=== PATIENT | female | born 1985 | race Caucasian/White ===

== ENCOUNTER 2019-12-18 21:41 | Emergency (ER) | payer MEDICARE, OTHER ==
[2019-12-18 21:50] VITALS: RESP 18
[2019-12-18] MEDS ORDERED: SODIUM CHLORIDE 0.9% 2,000 ML IV STA (21:51)
--- NOTE | 2019-12-18 21:53 | ED ---
Nausea/Vomiting/Diarrhea HPI - General Chief complaint: Nausea/Vomiting/Diarrhea Stated complaint: Post Radiation Vomiting Time Seen by Provider: 12/18/19 21:51 Source: family Mode of arrival: wheelchair Limitations: no limitations - History of Present Illness Initial comments: Sally is a 34yo female with recently diagnosed rectal cancer identified on a colonoscopy in October. Patient began radiation therapy on Thursday. Mom reports that this morning the patient woke up she seemed to be nauseated she was heaving she didn't keep down her breakfast she drank small sips of fluids throughout the day but refused other oral intake. This evening she continues to have heaving without vomiting because she is not a drink anything. Mom's concern for dehy dration. - Related Data Allergies Allergy/AdvReac Type Severity Reaction Status Date / Time Penicillins Allergy Unknown Verified 12/18/19 21:50 Review of Systems ROS Statement: Those systems with pertinent positive or pertinent negative responses have been documented in the HPI. ROS Other: All systems not noted in ROS Statement are negative. Past Medical History Past Medical History: Cancer, GERD/Reflux, Seizure Disorder Additional Past Medical History / Comment(s): rectal cancer, right chest port History of Any Multi-Drug Resistant Organisms: None Reported Past Surgical History: No Surgical Hx Reported Past Psychological History: Anxiety Smoking Status: Never smoker Past Alcohol Use History: None Reported Past Drug Use History: None Reported General Exam - General Exam Comments Initial Comments: Physical Exam GENERAL: Patient is well-developed and well-nourished. Patient appears uncomfortable, heaving HENT: Normocephalic, Atraumatic. EYES: PERRL, EOMI PULMONARY: Unlabored respirations. No audible rales rhonchi or wheezing was noted. CARDIOVASCULAR: Tachycardic, regular ABDOMEN: Soft and nontender with normal bowel sounds. SKIN: Skin is clear with no lesions or rashes and otherwise unremarkable. : Deferred NEUROLOGIC: Oriented to self, not answering questions MUSCULOSKELETAL: Normal extremities with adequate strength and full range of motion. No lower extremity swelling or edema. No calf tenderness. PSYCHIATRIC: Unable to assess Limitations: no limitations Course Vital Signs 12/18/19 21:43 Temperature 97.5 F L Pulse Rate 108 H Respiratory 18 Rate Blood Pressure 132/79 O2 Sat by Pulse 97 Oximetry Medical Decision Making - Medical Decision Making Patient was seen and evaluated history is obtained from the mother due to patient's cognitive delay Patient began radiation last week today she developed nausea and vomiting and decreased oral intake mother was concerned she may be becoming dehydrated Labs and x-ray imaging were obtained, no significant abnormalities were noted Patient did receive Zofran and IV fluids on the hospital. She had no further episodes of heaving or vomiting. She appeared to be feeling much better. At this time mom is comfortable taking her home she will be provided with Zofran ODT upon discharge. Patient is to see her oncologist tomorrow for scheduled radiation. - Lab Data Result diagrams: 12/18/19 21:56 12/18/19 21:56 Lab Results 12/18/19 12/18/19 12/18/19 Range/Units 21:56 21:56 21:56 WBC 7.1 (3.8-10.6) k/uL RBC 4.72 (3.80-5.40) m/uL Hgb 11.0 L (11.4-16.0) gm/dL Hct 36.3 (34.0-46.0) % MCV 76.9 L (80.0-100.0) fL MCH 23.3 L (25.0-35.0) pg MCHC 30.4 L (31.0-37.0) g/dL RDW 19.6 H (11.5-15.5) % Plt Count 394 (150-450) k/uL Neutrophils % 79 % Lymphocytes % 15 % Monocytes % 4 % Eosinophils % 1 % Basophils % 0 % Neutrophils # 5.6 (1.3-7.7) k/uL Lymphocytes # 1.1 (1.0-4.8) k/uL Monocytes # 0.3 (0-1.0) k/uL Eosinophils # 0.0 (0-0.7) k/uL Basophils # 0.0 (0-0.2) k/uL Hypochromasia Marked Anisocytosis Slight Microcytosis Moderate Sodium 140 (137-145) mmol/L Potassium 4.1 (3.5-5.1) mmol/L Chloride 109 H (98-107) mmol/L Carbon Dioxide 26 (22-30) mmol/L Anion Gap 5 mmol/L BUN 11 (7-17) mg/dL Creatinine 0.55 (0.52-1.04) mg/dL Est GFR (CKD-EPI)AfAm >90 (>60 ml/min/1.73 sqM) Est GFR (CKD-EPI)NonAf >90 (>60 ml/min/1.73 sqM) Glucose 99 (74-99) mg/dL Plasma Lactic Acid Sky 1.1 (0.7-2.0) mmol/L Calcium 9.5 (8.4-10.2) mg/dL Total Bilirubin 0.7 (0.2-1.3) mg/dL AST 22 (14-36) U/L ALT 10 (4-34) U/L Alkaline Phosphatase 73 (38-126) U/L Total Protein 6.7 (6.3-8.2) g/dL Albumin 4.0 (3.5-5.0) g/dL Lipase 212 (23-300) U/L HCG, Quant <2.4 mIU/mL Urine Color Urine Appearance (Clear) Urine pH (5.0-8.0) Ur Specific [place] (1.001-1.035) Urine Protein (Negative) Urine Glucose (UA) (Negative) Urine Ketones (Negative) Urine Blood (Negative) Urine Nitrite (Negative) Urine Bilirubin (Negative) Urine Urobilinogen (<2.0) mg/dL Ur Leukocyte Esterase (Negative) Urine RBC (0-5) /hpf Urine WBC (0-5) /hpf Ur Squamous Epith Cells (0-4) /hpf Urine Mucus (None) /hpf 12/18/19 Range/Units 21:56 WBC (3.8-10.6) k/uL RBC (3.80-5.40) m/uL Hgb (11.4-16.0) gm/dL Hct (34.0-46.0) % MCV (80.0-100.0) fL MCH (25.0-35.0) pg MCHC (31.0-37.0) g/dL RDW (11.5-15.5) % Plt Count (150-450) k/uL Neutrophils % % Lymphocytes % % Monocytes % % Eosinophils % % Basophils % % Neutrophils # (1.3-7.7) k/uL Lymphocytes # (1.0-4.8) k/uL Monocytes # (0-1.0) k/uL Eosinophils # (0-0.7) k/uL Basophils # (0-0.2) k/uL Hypochromasia Anisocytosis Microcytosis Sodium (137-145) mmol/L Potassium (3.5-5.1) mmol/L Chloride (98-107) mmol/L Carbon Dioxide (22-30) mmol/L Anion Gap mmol/L BUN (7-17) mg/dL Creatinine (0.52-1.04) mg/dL Est GFR (CKD-EPI)AfAm (>60 ml/min/1.73 sqM) Est GFR (CKD-EPI)NonAf (>60 ml/min/1.73 sqM) Glucose (74-99) mg/dL Plasma Lactic Acid Sky (0.7-2.0) mmol/L Calcium (8.4-10.2) mg/dL Total Bilirubin (0.2-1.3) mg/dL AST (14-36) U/L ALT (4-34) U/L Alkaline Phosphatase (38-126) U/L Total Protein (6.3-8.2) g/dL Albumin (3.5-5.0) g/dL Lipase (23-300) U/L HCG, Quant mIU/mL Urine Color Yellow Urine Appearance Clear (Clear) Urine pH 6.5 (5.0-8.0) Ur Specific [place] 1.015 (1.001-1.035) Urine Protein Trace H (Negative) Urine Glucose (UA) Negative (Negative) Urine Ketones 2+ H (Negative) Urine Blood Large H (Negative) Urine Nitrite Negative (Negative) Urine Bilirubin Negative (Negative) Urine Urobilinogen <2.0 (<2.0) mg/dL Ur Leukocyte Esterase Small H (Negative) Urine RBC >182 H (0-5) /hpf Urine WBC 2 (0-5) /hpf Ur Squamous Epith Cells 1 (0-4) /hpf Urine Mucus Few H (None) /hpf Disposition Clinical Impression: Nausea and vomiting Disposition: HOME SELF-CARE Condition: Stable Additional Instructions: Continue to encourage fluids Follow up with Oncology tomorrow Return to the ER for any worsening or development of new or concerning symptoms Is patient prescribed a controlled substance at d/c from ED?: No Referrals: Nonstaff,Physician [Primary Care Provider] - 1-2 days
[2019-12-18 22:25] LABS: Anisocytosis Slight; Basophils % (A) 0 %; Eosinophils % (A) 1 %; HCT 36.3 % (34.0-46.0); Hypochromasia Marked; Lymphocytes # (A) 1.1 k/uL (1.0-4.8); Lymphocytes % (A) 15 %; MCH 23.3 pg (25.0-35.0); MCHC 30.4 g/dL (31.0-37.0); MCV 76.9 fL (80.0-100.0); Mean Platelet Volume 7.6; Microcytosis Moderate; Monocytes # (A) 0.3 k/uL (0-1.0); Monocytes % (A) 4 %; Neutrophils # (A) 5.6 k/uL (1.3-7.7); Neutrophils % (A) 79 %; Platelet Count 394 k/uL (150-450); RBC 4.72 m/uL (3.80-5.40); RDW 19.6 % (11.5-15.5); WBC 7.1 k/uL (3.8-10.6)
[2019-12-18] MEDS ORDERED: PANTOPRAZOLE 40 MG/10 ML VIAL IVP STA (22:26)
[2019-12-18] MEDS ORDERED: ONDANSETRON 4 MG/2 ML VIAL IVP STA (22:26)
[2019-12-18 22:35] LABS: ALT 10 U/L (4-34); AST 22 U/L (14-36); African American GFR (CKD) >90 (>60 ml/min/1.73 sqM); Alkaline Phosphatase 73 U/L (38-126); Anion Gap 5 mmol/L; Blood Urea Nitrogen 11 mg/dL (7-17); Calcium 9.5 mg/dL (8.4-10.2); Carbon Dioxide 26 mmol/L (22-30); Chloride 109 mmol/L (98-107); Glucose 99 mg/dL (74-99); Non-African American GFR(CKD) >90 (>60 ml/min/1.73 sqM); Potassium 4.1 mmol/L (3.5-5.1); Sodium 140 mmol/L (137-145); Total Bilirubin 0.7 mg/dL (0.2-1.3); Total Protein 6.7 g/dL (6.3-8.2)
[2019-12-18 22:52] LABS: HCG,Quantitative Serum <2.4 mIU/mL
--- NOTE | 2019-12-18 23:01 | XR ---
EXAMINATION TYPE: XR KUB DATE OF EXAM: 12/18/2019 COMPARISON: None HISTORY: Abdominal pain TECHNIQUE: FINDINGS: 2 views were obtained supine that show no sign of intestinal obstruction or pneumoperitoneu m. Fecal pattern is normal. There is no sign of a mass. Lung bases are clear. IMPRESSION: Nonacute abdomen.
[2019-12-18 23:41] LABS: Appearance,Urine Clear (Clear); Bilirubin,Urine Negative (Negative); Blood,Urine Large (Negative); Color,Urine Yellow; Glucose,Urine (UA) Negative (Negative); Ketones,Urine 2+ (Negative); Leukocyte Esterase,Urine Small (Negative); Mucus,Urine Few /hpf; Nitrite,Urine Negative (Negative); PH, Urine 6.5 (5.0-8.0); Protein,Urine Trace (Negative); RBC,Urine >182 /hpf (0-5); Specific Gravity,Urine 1.015 (1.001-1.035); Squamous Epithelial Cell,Urine 1 /hpf (0-4); Urobilinogen,Urine <2.0 mg/dL (<2.0); WBC,Urine 2 /hpf (0-5)
[2019-12-19] MEDS ORDERED: ONDANSETRON 4 MG ODT STARTER PACK 2 TAB BTL PO STA (00:12)
[2019-12-19 00:43] VITALS: BP 136/70; PULSE 85; TEMP 98.4
== END 2019-12-19 00:43 | disposition home or self-care (01) ==
LOC: EC 21:41
DX: R11.2 Nausea with vomiting, unspecified (principal); C20 Malignant neoplasm of rectum; Z88.0 Allergy status to penicillin; Z92.21 Personal history of antineoplastic chemotherapy; Z87.19 Personal history of other diseases of the digestive system
CPT/HCPCS: 36415; 80053; 83605; 83690; 85025; 81001; 84702; 87040; 74018; 99284; 96374; 96375; 96361 ×2; J2405; S0119; C9113

== ENCOUNTER → 2020-06-20 | Outpatient (CLI) | payer MEDICARE, OTHER ==
--- NOTE | 2020-06-20 14:50 | CT ---
EXAMINATION TYPE: CT ChestAbdPelvis w con DATE OF EXAM: 06/20/2020 COMPARISON: None HISTORY: F/U for rectal CA CT DLP: 1176.6 mGycm CONTRAST: CT scan of the chest, abdomen and pelvis is performed without Oral Contrast and with IV Contrast, pat ient injected with 100 mL of Isovue 300. CT Chest: LUNGS: The lungs are clear and free of infiltrate or atelectasis. No pulmonary nodule or mass is det ected. No pleural effusion or CT evidence of interstitial lung disease. MEDIASTINUM: Thoracic aorta is of normal caliber. The heart is not enlarged. No evidence for media stinal mass or adenopathy. HILAR STRUCTURES: No evidence for mass. No hilar adenopathy is appreciated. OTHER: No significant abnormality. CONTRAST CT ABDOMEN AND PELVIS FINDINGS: LIVER/GB: Cholesterol gallstones noted. Nonspecific 1 cm lesion of decreased attenuation posterior se gment right hepatic lobe image 41. No additional hepatic lesions noted. Ultrasound correlation advise d. Biliary tree is of normal caliber. PANCREAS: No inflammation. No distinct mass. SPLEEN: No splenic enlargement. No lesion seen. ADRENALS: No nodule. No thickening. KIDNEYS/BLADDER: No hydronephrosis. No nephrolithiasis. No disctinct renal mass. BOWEL: Normal appendix. There is rectal wall thickening noted to the right of midline. Mild perirecta l stranding noted is nonspecific. No perirectal masses seen. GENITAL ORGANS: 3.2 cm cystic lesion left ovary is nonspecific. Right ovary and uterus are unremarkab le. LYMPH NODES: No greater than 1cm abdominal or pelvic lymph nodes are appreciated. AORTA: No significant abnormality. OSSEOUS STRUCTURES: No significant abnormality is seen. OTHER: No significant additional abnormality is seen. IMPRESSION: 1. There is rectal wall thickening noted to the right of midline. Mild perirectal stranding noted is nonspecific. No perirectal masses seen. 2. Hypoattenuating lesion within the right hepatic lobe near the dome. Metastatic lesion is difficult to CORRELATION IS ADVISED. 3. CYSTIC LESION LEFT OVARY IS NONSPECIFIC. ULTRASOUND CORRELATION ADVISED.
== END | disposition home or self-care (01) ==
LOC: EEVIPCON 13:40 → RADPROMAIN 13:40
PROVIDERS: ATTEND Internal Medicine Hematology & Oncology
DX: N83.202 Unspecified ovarian cyst, left side (principal)
CPT/HCPCS: 71260; 74177; J1642; Q9967

== ENCOUNTER → 2021-02-28 | Outpatient (CLI) | payer MEDICARE, OTHER ==
--- NOTE | 2021-03-01 21:33 | CT ---
EXAMINATION TYPE: CT ChestAbdPelvis w con DATE OF EXAM: 02/28/2021 COMPARISON: CT 06/20/2020 HISTORY: Rectal ca. Observe for mets. Pt not able to follow commands to stay still during test CT DLP: 1446 mGycm Automated exposure control for dose reduction was used. CONTRAST: CT scan of the chest, abdomen and pelvis is performed with Oral Contrast and with IV Contrast, patien t injected with 100 mL of Isovue 300. FINDINGS: LUNGS: The lungs are grossly clear, there is no concerning parenchymal mass or nodule identified. T here is no pleural effusion or pneumothorax seen. The tracheobronchial tree is patent. MEDIASTINUM: There are no greater than 1 cm hilar or mediastinal lymph nodes. No pericardial effusi on is seen. AORTA: No significant abnormality is seen. OTHER: No additional significant abnormality is seen. LIVER/GB: No significant interval change is appreciated, gallstones are present. Low dense focus with in the left lobe of the liver shows a similar appearance measuring 18 mm and becoming less conspicuou s on delayed imaging, possible hemangioma, additional previous identified focus in the right lobe chaparro ws a similar appearance, axial image #42, noted on prior MRI abdomen to represent hemangioma PANCREAS: No significant abnormality is seen. SPLEEN: No significant abnormality is seen. ADRENALS: No significant abnormality is seen. KIDNEYS: No significant abnormality is seen. REPRODUCTIVE ORGANS: Cystic left adnexal focus seen on prior exam is no longer seen.. BOWEL: There is an ostomy in the midline that is been placed in the interval. Postop changes are not ed, rectum is no longer seen. FREE AIR: No Free Air visible. ASCITES: None seen. RETROPERITONEAL ADENOPATHY: No retroperitoneal adenopathy is seen. LYMPH NODES: No greater than 1 cm abdominal or pelvic lymph nodes are appreciated. URINARY BLADDER: No significant abnormality is seen. PELVIC ADENOPATHY: None visualized. OSSEOUS STRUCTURES: No significant abnormality is seen. IMPRESSION: Postop changes. Lesions in the liver are stable.
== END | disposition home or self-care (01) ==
LOC: RADPROMAIN 13:06
PROVIDERS: ATTEND Internal Medicine Hematology & Oncology
DX: C20 Malignant neoplasm of rectum (principal); K76.89 Other specified diseases of liver
CPT/HCPCS: 71260; 74177; J1642; Q9967

== ENCOUNTER 2022-02-18 12:30 | Outpatient (CLI) | payer MEDICARE, OTHER ==
[2022-02-18 11:32] VITALS: TEMP 98.7
[2022-02-18 12:05] LABS: African American GFR (CKD) >90 (>60 ml/min/1.73 sqM); Blood Urea Nitrogen 22 mg/dL (7-17); Non-African American GFR(CKD) >90 (>60 ml/min/1.73 sqM); Potassium 4.8 mmol/L (3.5-5.1)
[~2022-02-18 12:30] MED LIST: FAMOTIDINE 20 MG/2 ML VIAL IV ONE; KETAMINE 10 MG/ML 20 ML VIAL ONE; LACTATED RINGERS 1,000 ML IV SCH; MIDAZOLAM 2 MG/2 ML VIAL ONE; ONDANSETRON 4 MG/2 ML VIAL IVP ONE; ONDANSETRON 4 MG/2 ML VIAL ONE; PROPOFOL 10 MG/ML 20 ML VIAL IV ONE; SODIUM CHLORIDE 0.9% 500 ML 500 ML IV ONE
[2022-02-18] MEDS ORDERED: IV FLUID CONTINUATION 1,000 ML IV ONE (13:06)
[2022-02-18 13:10] VITALS: BP 100/60; PULSE 76; RESP 16
--- NOTE | 2022-02-18 14:01 | CT ---
EXAMINATION TYPE: CT ChestAbdPelvis w con DATE OF EXAM: 02/18/2022 COMPARISON: Prior CT February 28, 2021 and older studies HISTORY: f/u rectal ca CT DLP: 1974.4 mGycm. Automated Exposure Control for Dose Reduction was Utilized. CONTRAST: CT scan of the thorax, abdomen and pelvis is performed without oral and with IV Contrast, patient inj ected with 70cc mL of Isovue 300. FINDINGS: LUNGS: Respiratory motion artifact noted makes evaluation suboptimal for subcentimeter nodules. No ob vious nodules or masses bilaterally. Lungs remain clear. MEDIASTINUM: There are no greater than 1 cm hilar or mediastinal lymph nodes. Abnormal soft tissue an terior superior mediastinum likely reflecting thymic rebound is redemonstrated. No cardiomegaly or p ericardial effusion is seen. OTHER: Stable right-sided internal jugular Mediport catheter. LIVER/GB: Intraluminal low dense gallstones redemonstrated. Stable 1.6 cm low dense lesion in the ant erior left hepatic dome axial image 13. Stable 1.2 cm low dense lesion right hepatic lobe posterior s egment image 20. No definitive new lesions. PANCREAS: No significant abnormality is seen. SPLEEN: No significant abnormality is seen. ADRENALS: No significant abnormality is seen. KIDNEYS: Symmetric cortical medullary uptake and excretion without hydronephrosis seen bilaterally. BOWEL: Slightly suboptimal evaluation without enteric contrast. No suspicious small or large bowel di latation is seen. Left sided colostomy redemonstrated. GENITAL ORGANS: Small slightly retroverted uterus again seen. LYMPH NODES: No greater than 1cm abdominal or pelvic lymph nodes are appreciated. OSSEOUS STRUCTURES: No significant abnormality is seen. OTHER: No significant additional abnormality is seen. IMPRESSION: Stable nonspecific 2 liver lesions. No new or enlarging masses or adenopathy noted.
== END 2022-02-18 13:52 | disposition home or self-care (01) ==
LOC: RADCTMAIN 12:30
PROVIDERS: ATTEND Internal Medicine Hematology & Oncology
DX: C20 Malignant neoplasm of rectum (principal); K76.9 Liver disease, unspecified
CPT/HCPCS: 82565; 84132; 84520; 84703; 71260; 74177; J2405; Q9967; 81025

== ENCOUNTER 2022-09-20 18:50 | Emergency (ER) | payer MEDICARE, OTHER ==
[2022-09-20 18:58] VITALS: BP 126/65; PULSE 98; RESP 18
[2022-09-20] MEDS ORDERED: ZIPRASIDONE 20 MG VIAL IM STA (19:32)
[2022-09-20] MEDS ORDERED: CLINDAMYCIN 150 MG CAP PO STA (21:03)
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
== END 2022-09-20 21:39 | disposition home or self-care (01) ==
LOC: EC 18:50
DX: T74.21XA Adult sexual abuse, confirmed, initial encounter (principal); K08.109 Complete loss of teeth, unspecified cause, unspecified class; F41.9 Anxiety disorder, unspecified; K21.9 Gastro-esophageal reflux disease without esophagitis; Z79.899 Other long term (current) drug therapy; Z88.0 Allergy status to penicillin
CPT/HCPCS: 99284; 96372; J3486

== ENCOUNTER → 2022-11-14 | Outpatient (CLI) | payer MEDICARE, OTHER ==
--- NOTE | 2022-11-16 11:53 | CT ---
EXAMINATION TYPE: CT ChestAbdPelvis w con DATE OF EXAM: 11/14/2022 COMPARISON: 02/18/2022, 02/28/2021 HISTORY: 36-year-old female C20, rectal cancer, colon CA f/u TECHNIQUE: Contiguous axial scanning of the chest, abdomen, and pelvis performed with IV Contrast, pa tient injected with 100 mL of Isovue 300. Delayed images through the kidneys were obtained. Coronal/s agittal reconstructions performed. CT DLP: 2117.7 mGycm Automated exposure control for dose reduction was used. FINDINGS: Chest: Heart upper limits of normal in size without pericardial effusion. Right anterior chest wall injectio n port with catheter tip at the upper right atrium. Aorta normal caliber with conventional arch vessel branching anatomy. No thoracic lymphadenopathy by CT size criteria. Generalized hazy atelectasis in all lungs without consolidation or pleural effusions. Some breathing motion is present as well. ABDOMEN: Anterior left hepatic dome lesion measures 1.2 cm versus 1.6 cm, previously. Posterior right liver lobe lesion measures 1.2 cm, unchanged. A subtle peripheral right liver lobe lesion measures 1.1 cm versus 8 mm, previously. Overall not significantly changed, possibly some slight fluctuation. Ongoing surveillance follow-up c an be performed. Portal venous system is patent. No biliary ductal dilatation. Gallbladder, adrenal glands, kidneys, spleen, and pancreas within normal limits. No dilated small bowel, free fluid, or free air. Scattered nonenlarged mesenteric lymph nodes through out. No mesenteric or retroperitoneal lymphadenopathy is identified. Cecum low in the pelvis. Mild to moderate stool burden. There appears to be a diverting left lower qu adrant sigmoid colostomy. Pelvis: Uterus is retroverted. Neither ovary clearly visualized due to clustered bowel loops. Rectum not well seen. No abnormal fluid collection in the pelvis or pelvic lymphadenopathy. Bones: Facet arthropathy lower lumbar spine with grade 1 anterolisthesis L5-S1. IMPRESSION: 1. 3 LIVER LESIONS MEASURING UP TO 1.2 CM ALL PRESENT ON 02/18/2022. ONE APPEARS SMALLER. A SECOND IS STABLE. THE THIRD MAY BE MINIMALLY LARGER BY A COUPLE MILLIMETERS. OVERALL NOT SIGNIFICANTLY CHANGED . ONGOING SURVEILLANCE FOLLOW-UP RECOMMENDED. 2. LEFT LOWER QUADRANT SIGMOID COLOSTOMY. NO EVIDENCE FOR METASTATIC DISEASE ELSEWHERE IN THE CHEST, ABDOMEN, OR PELVIS.
== END | disposition home or self-care (01) ==
LOC: RADPROMAIN 12:54
PROVIDERS: ATTEND Internal Medicine Hematology & Oncology
DX: C20 Malignant neoplasm of rectum (principal); G62.0 Drug-induced polyneuropathy; F99 Mental disorder, not otherwise specified; Z71.3 Dietary counseling and surveillance; K76.89 Other specified diseases of liver; Z93.3 Colostomy status
CPT/HCPCS: 71260; 74177; J1642; Q9967

== ENCOUNTER 2023-01-15 11:08 | Day surgery (SDC) | payer MEDICARE, OTHER ==
[2023-01-08 13:21] VITALS: BMI 43.7
[~2023-01-15 11:08] MED LIST changes: +ACETAMINOPHEN TAB 500 MG TAB PO PRN; -FAMOTIDINE 20 MG/2 ML VIAL IV ONE; +HEPARIN SODIUM,PORCINE/PF 5,000 UNIT/0.5 ML SYRINGE SQ PRN; -KETAMINE 10 MG/ML 20 ML VIAL ONE; -MIDAZOLAM 2 MG/2 ML VIAL ONE; -ONDANSETRON 4 MG/2 ML VIAL IVP ONE; -ONDANSETRON 4 MG/2 ML VIAL ONE; -PROPOFOL 10 MG/ML 20 ML VIAL IV ONE; -SODIUM CHLORIDE 0.9% 500 ML 500 ML IV ONE; +fentaNYL (PF) 50 MCG/ML 2 ML AMP IV PRN
[2023-01-15] MEDS ORDERED: LACTATED RINGERS 1,000 ML IV ONE (11:46)
[2023-01-15] MEDS ORDERED: MIDAZOLAM 2 MG/2 ML VIAL IVP ONE (12:00)
[2023-01-15] MEDS ORDERED: ONDANSETRON 4 MG/2 ML VIAL ONE (12:07)
[2023-01-15] MEDS ORDERED: DEXAMETHASONE SOD PHOSPHATE 4 MG/ML 1 ML VIAL IVP ONE (12:14)
[2023-01-15] MEDS ORDERED: ONDANSETRON 4 MG/2 ML VIAL IVP ONE (12:14)
[2023-01-15] MEDS ORDERED: HEPARIN SODIUM,PORCINE 5,000 UNIT/ML 1 ML VIAL ONE (12:35)
[2023-01-15] MEDS ORDERED: LIDOCAINE 1% INJ 10MG/ML (20 ML MDV) ONE (12:35)
[2023-01-15] MEDS ORDERED: PROPOFOL 10 MG/ML 20 ML VIAL IV ONE (12:35)
[2023-01-15] MEDS ORDERED: SUCCINYLCHOLINE CHLORIDE 200 MG/10 ML VIAL IV ONE (12:35)
[2023-01-15] MEDS ORDERED: fentaNYL (PF) 50 MCG/ML 2 ML AMP ONE (12:35)
[2023-01-15] MEDS ORDERED: MIDAZOLAM 2 MG/2 ML VIAL ONE (12:35)
--- NOTE | 2023-01-15 12:39 | P.GSHP ---
History of Present Illness H&P Date: 01/15/23 Chief Complaint: Rectal cancer 37-year-old female previously diagnosed with rectal cancer. Here today to have Port-A-Cath removed. Still having the port flushed periodically. No issues with the port. Has not been used for chemo for approximately 2 years. Past Medical History Past Medical History: Cancer, GERD/Reflux, Hyperlipidemia, Seizure Disorder Additional Past Medical History / Comment(s): Current UTI, on antibiotic, "should be completed today or tomorrow." Hx rectal cancer diagnosed Nov 17, 2019, right chest port placed, had radiatin/chemo, last treatment 04/2020. 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 Hx Myclonic seizures, none witnessed in last several years, but still showed up on most recent EEG. ON Propranolol for tremors. Colostomy. Severe reflux, vomits daily. History of Any Multi-Drug Resistant Organisms: None Reported Past Surgical History: Bowel Resection Additional Past Surgical History / Comment(s): Rectum removed/colostomy, benign tumor removed from jaw as teenager, med port placement. Past Anesthesia/Blood Transfusion Reactions: Postoperative Nausea & Vomiting (PONV) Additional Past Anesthesia/Blood Transfusion Reaction / Comment(s): Gets premedicated for nausea even for IV sedation. Difficult IV start. Severe rerflux, vomits daily. Past Psychological History: Anxiety Additional Psychological History / Comment(s): Very high anxiety. 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 Smoking Status: Never smoker Past Alcohol Use History: None Reported Past Drug Use History: None Reported - Past Family History Father Family Medical History: Cancer Additional Family Medical History / Comment(s): Prostate cancer. Medications and Allergies Home Medications Medication Instructions Recorded Confirmed Type Escitalopram [Lexapro] 10 mg PO QAM 12/26/19 01/15/23 History lamoTRIgine [lamoTRIgine ER] 50 mg PO BID 12/26/19 01/15/23 History Cyanocobalamin [Vitamin B-12] 500 mcg PO DAILY 02/12/22 01/15/23 History Dexlansoprazole [Dexilant] 60 mg PO DAILY 02/12/22 01/15/23 History Propranolol HCl 20 mg PO HS 02/12/22 01/15/23 History busPIRone HCL [Buspirone HCl] 7.5 mg PO BID 02/12/22 01/15/23 History Antibiotic (Unknown Name/Dose) 1 tab PO DIRECTED 01/08/23 01/15/23 History Gabapentin 800 mg PO HS 01/08/23 01/15/23 History Vitamin D (Unknown Dose) 1 tab PO DAILY 01/08/23 01/15/23 History Allergies Allergy/AdvReac Type Severity Reaction Status Date / Time Penicillins Allergy Severe Rash/Hives Verified 01/15/23 11:41 Surgical - Exam Vital Signs Temp Pulse Resp BP Pulse Ox 97.1 F L 63 20 150/88 95 01/15/23 11:55 01/15/23 11:55 01/15/23 11:55 01/15/23 11:55 01/15/23 11:55 Physical exam: General: Well-developed, well-nourished HEENT: Normocephalic, sclerae nonicteric Abdomen: Nontender, nondistended Extremities: No edema Neuro: Alert and oriented Assessment and Plan (1) Rectal cancer Narrative/Plan: Will proceed with Port-A-Cath removal at this time Current Visit: Yes Status: Acute Code(s): C20 - MALIGNANT NEOPLASM OF RECTUM SNOMED Code(s): 716487685
[2023-01-15] MEDS ORDERED: SODIUM CHLORIDE 0.9% 50 ML with ceFAZolin 2 GM IV ONE ×2 (12:40)
[2023-01-15] MEDS ORDERED: LIDOCAINE 1% PF 10 MG/ML (5 ML AMP) SQ ONE ×2 (13:06)
[2023-01-15] MEDS ORDERED: NALOXONE 0.4 MG/ML 1 ML VIAL IV PRN (13:26)
--- NOTE | 2023-01-15 13:27 | P.PCN ---
Date of Procedure: 01/15/23 Procedure(s) Performed: PREOPERATIVE DIAGNOSIS: Rectal cancer POSTOPERATIVE DIAGNOSIS: Same PROCEDURE: Port-A-Cath removal SURGEON: Gema EBL: Minimal ANESTHESIA: Sedation COMPLICATIONS: None OPERATIVE PROCEDURE: Patient was placed in the supine position. The patient was sedated per anesthesia that time. The chest was prepped and draped in the usual sterile fashion. The skin was localized with Marcaine solution. The previous incision was re-incised using a scalpel. The port was easily excised using accommodation of blunt dissection sharp dissection and electrocautery. The subcutaneous tissues were reapproximated using 3-0 Vicryl sutures. The skin was reapproximated using 4-0 Monocryl sutures. Skin glue was then applied. DISPOSITION: Stable to recovery room
[2023-01-15 14:00] VITALS: RESP 18; TEMP 96.9
[2023-01-15 14:21] VITALS: BP 128/78; PULSE 72
== END 2023-01-15 14:29 | disposition home or self-care (01) ==
LOC: OR 11:08
PROVIDERS: ATTEND Surgery
DX: C20 Malignant neoplasm of rectum (principal); E78.5 Hyperlipidemia, unspecified; F41.9 Anxiety disorder, unspecified; G40.909 Epilepsy, unspecified, not intractable, without status epilepticus; K21.9 Gastro-esophageal reflux disease without esophagitis; Z86.010 Personal history of colon polyps; Z88.0 Allergy status to penicillin; Z93.3 Colostomy status; Z79.899 Other long term (current) drug therapy
CPT/HCPCS: 81025; 36590; J2250; J0330; J1644; J1100; J0690; J2405; J2001 ×2; J3010; J2704

== ENCOUNTER → 2023-03-12 | Outpatient (CLI) | payer MEDICARE, OTHER ==
--- NOTE | 2023-03-12 14:02 | CT ---
EXAMINATION: CT CHEST, ABDOMEN AND PELVIS WITH IV CONTRAST DATE OF EXAMINATION: 03/12/2023. COMPARISON: 11/14/2022.. INDICATION: Rectal cancer follow-up. PROCEDURE: Axial CT of the chest, abdomen and pelvis was performed following the intravenous adminis tration of 100 ml Isovue 300. Coronal and sagittal reformats were performed. CT dose lowering techni ques were used, to include: automated exposure control, adjustment for patient size, and/or use of it erative reconstruction. FINDINGS: CHEST: Mediastinum and Karlene: There is no axillary, mediastinal or hilar lymphadenopathy. Pleural and Pericardial spaces: There are no pleural or pericardial effusions. Cardiovascular: The thoracic aorta is normal in size without evidence of aneurysm or dissection. Pulmonary Artery: There are no central pulmonary arterial filling defects. Lung Parenchyma and Airways: The lungs are clear. ABDOMEN: Liver and Biliary system: There is a lesion within the left lobe of liver in segment 2 that measures approximately 1.5 cm in diameter which is not significantly changed from the previous examination. T he lesion in segment 7 of the liver is also likely not significantly changed approximately 1.3 cm in diameter. A third lesion within segment 8 of the liver laterally is also unchanged and measures appro ximately 1.2 cm. There are no new liver lesions identified. Adrenal glands: Normal. Kidneys and ureters: Normal. Spleen: Normal. Pancreas: Normal. Gallbladder: Normal. Lymph nodes, Peritoneum and mesentery: There is no mesenteric or retroperitoneal lymphadenopathy. Gastrointestinal tract: There are no dilated loops of bowel or free intraperitoneal air. . There is a left lower quadrant colostomy. Aorta/IVC: Aorta normal. No aortic aneurysm or dissection. IVC normal. Abdominal wall: Normal. PELVIS: Fluid: There is no free fluid in the pelvis. Lymph Nodes: There is no pelvic or inguinal lymphadenopathy.. Urinary bladder: Normal. BONES: There are no osseous destructive lesions.. ADDITIONAL SIGNIFICANT FINDINGS: None. IMPRESSION: 1. Unchanged liver lesions. Attention on follow-up recommended. 2. Left lower quadrant colostomy appears unchanged. 3. No acute findings otherwise seen within the chest, abdomen or pelvis and no new measurable disease .
== END | disposition home or self-care (01) ==
LOC: RADCTMAIN 12:00
PROVIDERS: ATTEND Internal Medicine Hematology & Oncology
DX: C20 Malignant neoplasm of rectum (principal); F99 Mental disorder, not otherwise specified; G62.0 Drug-induced polyneuropathy; K76.9 Liver disease, unspecified; Z93.3 Colostomy status; Z71.3 Dietary counseling and surveillance
CPT/HCPCS: 71260; 74177; Q9967

== ENCOUNTER → 2023-09-01 | Outpatient (CLI) | payer MEDICARE, OTHER ==
--- NOTE | 2023-09-01 13:13 | CT ---
EXAMINATION TYPE: CT ChestAbdPelvis w con CT DLP: 2178.50 mGycm, Automated exposure control for dose reduction was used. DATE OF EXAM: 09/01/2023 1:01 PM COMPARISON: Multiple CT chest abdomen and pelvis with most recent 03/12/2023 CLINICAL INDICATION:Female, 37 years old with history of C20 RECTAL CANCER; [facility], f/u rectal cancer Technique: Multiple axial images of the chest, abdomen, and pelvis were obtained following the intrav enous administration of 100 mL Isovue-300. Oral contrast was administered. Two-dimensional coronal an d sagittal reconstructions were obtained. Findings: CHEST: LUNGS/ PLEURA: No pleural effusion, pneumothorax, or focal consolidation. Scattered regions of atelec tasis demonstrated. No suspicious pulmonary nodule or mass. AIRWAY: Patent and unremarkable.. HEART: Mildly enlarged heart. No pericardial effusion. MEDIASTINUM: No gross evidence of adenopathy. Residual thymic tissue demonstrated. VASCULATURE: No aortic aneurysm. MUSCULOSKELETAL: No acute osseous abnormalities. No aggressive osseous abnormality. SOFT TISSUES/LYMPH NODES: Unremarkable. LOWER NECK: No significant findings. ABDOMEN: ABDOMEN LIVER: Stable hypodense lesion within the left hepatic lobe segment 2 which measures up to 1.3 cm, pr eviously 1.5 cm. Stable hypodense lesion within segment 7 of the liver measures 1.1 cm, previously 1. 3 cm. Stable hypodense lesion within segment 8 of the liver measuring 1.1 cm, previously 1.2 cm. Thes e blend in with the surrounding parenchyma on the delayed phase. The segment 2 lesion is slightly hyp odense still on the delayed phase. No new suspicious hepatic lesions. GALLBLADDER AND BILE DUCTS: Unremarkable. PANCREAS: Unremarkable. SPLEEN: Unremarkable. ADRENAL GLANDS: Unremarkable. KIDNEYS AND URETERS: No evidence of hydronephrosis or renal calculus. The kidneys enhance symmetrical ly. PELVIS BLADDER: Unremarkable REPRODUCTIVE: Unremarkable. ABDOMEN & PELVIS STOMACH AND BOWEL: Small hiatal hernia. Left lower quadrant end colostomy redemonstrated with post blas rgical changes of the rectum. Enteric contrast is reaches the mid small bowel. No focal bowel wall th ickening or surrounding inflammatory changes. Stool is present throughout the colon which limits eval uation. No evidence of bowel obstruction. PERITONEUM: No evidence of pneumoperitoneum or free fluid. VASCULATURE: No evidence of aortic aneurysm. MUSCULOSKELETAL: No acute osseous abnormalities. No aggressive osseous lesions. Degenerative disc dis ease L5-S1. LYMPH NODES: No gross evidence for lymphadenopathy. SOFT TISSUE/ABDOMINAL WALL: Unremarkable IMPRESSION: 1. There are 3 overall stable hepatic lesions redemonstrated. No new or enlarging liver lesions ident ified. 2. Left lower quadrant end colostomy redemonstrated. No evidence for metastatic disease elsewhere wit hin the chest, abdomen or pelvis.
== END | disposition home or self-care (01) ==
LOC: RADPROMAIN 10:05
PROVIDERS: ATTEND Internal Medicine Hematology & Oncology
DX: K76.9 Liver disease, unspecified (principal); C20 Malignant neoplasm of rectum; F99 Mental disorder, not otherwise specified; G62.0 Drug-induced polyneuropathy; Z71.3 Dietary counseling and surveillance; Z93.3 Colostomy status
CPT/HCPCS: 71260; 74177; Q9967

== ENCOUNTER → 2024-03-01 | Outpatient (CLI) | payer MEDICARE, OTHER ==
--- NOTE | 2024-03-01 11:33 | CT ---
EXAMINATION TYPE: CT ChestAbdPelvis w con CT DLP: 1978.5 mGycm, Automated exposure control for dose reduction was used. DATE OF EXAM: 03/01/2024 11:18 AM COMPARISON: Multiple CT Chest Abdomen Pelvis with most recent 09/01/2023. CLINICAL INDICATION:Female, 38 years old with history of C20 RECTAL; [facility], Rectal CA Technique: Multiple axial images of the chest, abdomen, and pelvis were obtained following the intrav enous administration of 100 mL Isovue-300. Oral contrast was administered. Two-dimensional coronal an d sagittal reconstructions were obtained. Findings: CHEST: LUNGS/ PLEURA: No pleural effusion, pneumothorax, or focal consolidation. Scattered regions of atelec tasis demonstrated. No suspicious pulmonary nodule or mass. AIRWAY: Patent and unremarkable.. HEART: Mildly enlarged heart. No pericardial effusion. MEDIASTINUM: No gross evidence of adenopathy. Residual thymic tissue demonstrated. VASCULATURE: No aortic aneurysm. MUSCULOSKELETAL: No acute osseous abnormalities. No aggressive osseous abnormality. SOFT TISSUES/LYMPH NODES: Unremarkable. LOWER NECK: No significant findings. ABDOMEN: ABDOMEN LIVER: Stable hypodense lesion within the left hepatic lobe segment 2 measuring up to 1.4 cm. Stable hypodense lesion within segment 7 of the liver measuring up to 1.3 cm. These blend in with the surrou nding parenchyma on delayed phase. Other previously demonstrated segment 8 peripheral lesion is not w ell-visualized on today's exam. New segment 7 enhancing 1.3 cm lesion which blends in with the surrou nding parenchyma on delayed phase (series 3, image 32). GALLBLADDER AND BILE DUCTS: Unremarkable. PANCREAS: Unremarkable. SPLEEN: Unremarkable. ADRENAL GLANDS: Unremarkable. KIDNEYS AND URETERS: No evidence of hydronephrosis or renal calculus. The kidneys enhance symmetrical ly. Contrast is demonstrated within both collecting systems on the delayed phase. PELVIS BLADDER: Unremarkable REPRODUCTIVE: Unremarkable. ABDOMEN & PELVIS STOMACH AND BOWEL: Small hiatal hernia. Left lower quadrant end colostomy redemonstrated with post blas rgical changes of the rectum. Enteric contrast is reaches the mid small bowel. No focal bowel wall th ickening or surrounding inflammatory changes. Stool is present throughout the colon which limits eval uation. No evidence of bowel obstruction. PERITONEUM: No evidence of pneumoperitoneum or free fluid. VASCULATURE: No evidence of aortic aneurysm. MUSCULOSKELETAL: No acute osseous abnormalities. No aggressive osseous lesions. Degenerative disc dis ease L5-S1. LYMPH NODES: No evidence for lymphadenopathy. SOFT TISSUE/ABDOMINAL WALL: Unremarkable IMPRESSION: 1. New right hepatic lobe indeterminate 1.3 cm enhancing lesion. There are 2 additional stable hypoat tenuating lesions within the liver with additional previously seen peripheral right hepatic lobe lesi on not well-visualized today. Further evaluation with MR abdomen with IV contrast liver mass protocol is recommended. 2. Left lower quadrant end colostomy redemonstrated. No lymphadenopathy identified. [facility], , 03/01/2024 11:30 AM
== END | disposition home or self-care (01) ==
LOC: RADPROMAIN 09:20
PROVIDERS: ATTEND Internal Medicine Hematology & Oncology
DX: C20 Malignant neoplasm of rectum (principal); G62.0 Drug-induced polyneuropathy; F99 Mental disorder, not otherwise specified; Z71.3 Dietary counseling and surveillance; K76.9 Liver disease, unspecified; K44.9 Diaphragmatic hernia without obstruction or gangrene; Z93.3 Colostomy status
CPT/HCPCS: 71260; 74177; Q9967

== ENCOUNTER 2024-03-11 15:29 | Emergency (ER) | payer MEDICARE, OTHER ==
[2024-03-11] MEDS: SODIUM CHLORIDE 0.9% 1,000 ML IV STA (16:51)
--- NOTE | 2024-03-11 16:54 | ED ---
General Adult HPI - General Chief complaint: Abdominal Pain Stated complaint: vomitting/unable to poop Time Seen by Provider: 03/11/24 16:35 Source: family, RN notes reviewed, old records reviewed Mode of arrival: ambulatory Limitations: altered mental status - History of Present Illness Initial comments: Patient is a 38-year-old female with past medical history markable for rectal cancer in remission, GERD, hyperlipidemia, seizure disorder with her mother as s her legal guardian. His chronic colostomy bag. He is currently being treated for an ear infection on cefuroxime as well as having what appears to be impetigo from some upper respiratory congestion. Patient has been having nausea and vomiting as well for last 2 to 3 days. Less output in the ostomy bag. Concern for possible constipation or dehydration. Patient is overall a poor historian. Patient's mother brings her in for further evaluation. Concern is constipation, URI symptoms, other form of infection and possible UTI. She is a little bit more agitated at home. Presents for further evaluation at this time. - Related Data Home Medications Medication Instructions Recorded Confirmed Escitalopram [Lexapro] 10 mg PO QAM 12/26/19 01/15/23 lamoTRIgine [lamoTRIgine ER] 50 mg PO BID 12/26/19 01/15/23 Cyanocobalamin [Vitamin B-12] 500 mcg PO DAILY 02/12/22 01/15/23 Dexlansoprazole [Dexilant] 60 mg PO DAILY 02/12/22 01/15/23 Propranolol HCl 20 mg PO HS 02/12/22 01/15/23 busPIRone HCL [Buspirone HCl] 7.5 mg PO BID 02/12/22 01/15/23 Antibiotic (Unknown Name/Dose) 1 tab PO DIRECTED 01/08/23 01/15/23 Gabapentin 800 mg PO HS 01/08/23 01/15/23 Vitamin D (Unknown Dose) 1 tab PO DAILY 01/08/23 01/15/23 Previous Rx's Medication Instructions Recorded Sulfamethox-Tmp 800-160Mg [Bactrim 1 tab PO Q12HR 7 Days #14 tab 03/11/24 DS 800-160 mg] Allergies Allergy/AdvReac Type Severity Reaction Status Date / Time Penicillins Allergy Severe Rash/Hives Verified 03/11/24 15:52 Review of Systems ROS Statement: Those systems with pertinent positive or pertinent negative responses have been documented in the HPI. ROS Other: All systems not noted in ROS Statement are negative. Past Medical History Past Medical History: Cancer, GERD/Reflux, Hyperlipidemia, Seizure Disorder Additional Past Medical History / Comment(s): Current UTI, on antibiotic, "should be completed today or tomorrow." Hx rectal cancer diagnosed Nov 17, 2019, right chest port placed, had radiatin/chemo, last treatment 04/2020. Sanju ropathy in hands and feet since chemo. Hx Myclonic seizures, none witnessed in last several years, but still showed up on most recent EEG. ON Propranolol for tremors. Colostomy. Severe reflux, vomits daily. History of Any Multi-Drug Resistant Organisms: None Reported Past Surgical History: Bowel Resection Additional Past Surgical History / Comment(s): Rectum removed/colostomy, benign tumor removed from jaw as teenager, med port placement. Past Anesthesia/Blood Transfusion Reactions: Postoperative Nausea & Vomiting (PONV) Additional Past Anesthesia/Blood Transfusion Reaction / Comment(s): Gets premedicated for nausea even for IV sedation. Difficult IV start. Severe re rflux, vomits daily. Past Psychological History: Anxiety Smoking Status: Never smoker Past Alcohol Use History: None Reported Past Drug Use History: None Reported - Past Family History Father Family Medical History: Cancer Additional Family Medical History / Comment(s): Prostate cancer. General Exam - General Exam Comments Initial Comments: General: Appears in no acute distress. HEAD: Normal with no signs of head trauma. EYES: EOMI ENT: Hearing grossly intact, normal oropharynx. Patient has impetigo under her nose. Rhinorrhea. Left ear canal appears irritated and erythematous. RESPIRATORY: Clear breath sounds bilaterally. No wheezes, rales, or rhonchi. No hypoxia or increased work of breathing. C/V: Regular rate and rhythm. S1 and S2 auscultated, no edema, peripheral pulses 2+ and intact throughout ABD: Abd is soft, nontender, nondistended. Ostomy bag is in place. No contents. Last changed last night. EXT: Normal range of motion, no obvious deformity SKIN: What appears to be impetigo on her upper lip. NEURO: Alert and oriented x 4. Limitations: altered mental status Course Vital Signs 03/11/24 03/11/24 03/11/24 15:52 18:52 20:09 Temperature 98.1 F 98 F Pulse Rate 111 H 105 H 77 Respiratory 20 18 16 Rate Blood Pressure 115/71 114/76 118/77 O2 Sat by Pulse 95 98 97 Oximetry Medical Decision Making - Medical Decision Making Was pt. sent in by a medical professional or institution (, PA, PALLETISER OPERATOR, urgent care, hospital, or [facility]...) When possible be specific @ -No Did you speak to anyone other than the patient for history (EMS, parent, family, police, friend...)? What history was obtained from this source @ -Patient's mother who is the guardian is the primary historian for the patient. Did you review nursing and triage notes (agree or disagree)? Why? @ -I reviewed and agree with nursing and triage notes Were old charts reviewed (outside hosp., previous admission, EMS record, old EKG, old radiological studies, urgent care reports/EKG's, [facility] records)? Report findings @ -No old charts were reviewed Differential Diagnosis (chest pain, altered mental status, abdominal pain women, abdominal pain men, vaginal bleeding, weakness, fever, dyspnea, syncope, headache, dizziness, GI bleed, back pain, seizure, CVA, palpatations, mental health, musculoskeletal)? @ -URI, COVID, flu, RSV, constipation, dehydration, gastroenteritis. This list is not all inclusive. EKG interpreted by me (3pts min.). @ -As above X-rays interpreted by me (1pt min.). @ -Chest x-ray reveals no evidence of acute cardiopulmonary process. CT interpreted by me (1pt min.). @ -CT abdomen pelvis reveals no obvious acute intra-abdominal process. U/S interpreted by me (1pt. min.). @ -None done What testing was considered but not performed or refused? (CT, X-rays, U/S, labs)? Why? @ -None What meds were considered but not given or refused? Why? @ -None Did you discuss the management of the patient with other professionals (sirena acosta iJonieJoni Orozco, PA, PALLETISER OPERATOR, lab, RT, psych nurse, renal social worker, marketing intelligence analyst, teacher, supply officer, case filler)? Give summary @ -No Was smoking cessation discussed for >3mins.? @ -No Was critical care preformed (if so, how long)? @ -No Were there social determinants of health that impacted care today? How? (Homelessness, low income, unemployed, alcoholism, drug addiction, transportation, low edu. Level, literacy, decrease access to med. care, prison, rehab)? @ -No Was there de-escalation of care discussed even if they declined (Discuss DNR or withdrawal of care, Hospice)? DNR status @ -No What co-morbidities impacted this encounter? (DM, HTN, Smoking, COPD, CAD, Cancer, CVA, ARF, Chemo, Hep., AIDS, mental health diagnosis, sleep apnea, morbid obesity)? @ -Chronic ostomy bag Was patient admitted / discharged? Hospital course, mention meds given and route, prescriptions, significant lab abnormalities, going to OR and other pertinent info. @ -Patient presents emergency department complaining of multiple complaints. We will obtain abdominal workup as well as CT abdomen pelvis as well as evaluation of her upper respiratory illness. Patient's mother who is the primary story and is in agreement this plan. Patient will be administered IV fluids, Zofran, Protonix, Toradol. Vitals within acceptable limits. Patient's imaging returned unremarkable. Laboratory studies returned within acceptable limits as well except for possible early UTI. I discussed results with patient as well as her mother. Patient is feeling improved. Patient will be placed on Bactrim for UTI which should also cover for the mild otitis media as well. Patient has impetigo and recommend he continue some mupirocin. Strict return precautions discussed. They were in agreement this plan. I will provide the patient with a prescription for Bactrim. I instructed the patient to follow up with their PCP in the next 1-3 days.. I explained that the patient should return to the emergency department if they experience any worsening symptoms. Strict return precautions were discussed with the patient. The patient expressed understanding of these instructions. I answered all questions that the patient had. The patient was discharged home in good condition with their prescriptions and follow up information. Undiagnosed new problem with uncertain prognosis? @ -No Drug Therapy requiring intensive monitoring for toxicity (Heparin, Nitro, Insulin, Cardizem)? @ -No Were any procedures done? @ -No Diagnosis/symptom? @ -UTI, otitis media, impetigo Acute, or Chronic, or Acute on Chronic? @ -Acute Uncomplicated (without systemic symptoms) or Complicated (systemic symptoms)? @ -Uncomplicated Side effects of treatment? @ -None Exacerbation, Progression, or Severe Exacerbation] @ -No Poses a threat to life or bodily function? @ -Unlikely at this time - Lab Data Result diagrams: 03/11/24 16:48 03/11/24 16:48 Lab Results 03/11/24 03/11/24 03/11/24 Range/Units 16:48 16:48 16:48 WBC 8.9 (3.8-10.6) k/uL RBC 4.94 (3.80-5.40) m/uL Hgb 14.9 (11.4-16.0) gm/dL Hct 44.9 (34.0-46.0) % MCV 90.8 (80.0-100.0) fL MCH 30.1 (25.0-35.0) pg MCHC 33.2 (31.0-37.0) g/dL RDW 13.5 (11.5-15.5) % Plt Count 307 (150-450) k/uL MPV 7.4 Neutrophils % 81 % Lymphocytes % 14 % Monocytes % 3 % Eosinophils % 1 % Basophils % 0 % Neutrophils # 7.2 (1.3-7.7) k/uL Lymphocytes # 1.2 (1.0-4.8) k/uL Monocytes # 0.3 (0-1.0) k/uL Eosinophils # 0.1 (0-0.7) k/uL Basophils # 0.0 (0-0.2) k/uL PT 11.1 (10.0-12.5) sec INR 1.0 (<1.2) APTT 22.5 (22.0-30.0) sec Sodium 137 (137-145) mmol/L Potassium 4.7 (3.5-5.1) mmol/L Chloride 103 (98-107) mmol/L Carbon Dioxide 27 (22-30) mmol/L Anion Gap 7 mmol/L BUN 15 (7-17) mg/dL Creatinine 0.76 (0.52-1.04) mg/dL Est GFR (CKD-EPI)AfAm >90 (>60 ml/min/1.73 sqM) Est GFR (CKD-EPI)NonAf >90 (>60 ml/min/1.73 sqM) Glucose 96 (74-99) mg/dL Plasma Lactic Acid Sky (0.7-2.0) mmol/L Calcium 9.8 (8.4-10.2) mg/dL Total Bilirubin 0.8 (0.2-1.3) mg/dL AST 49 H (14-36) U/L ALT 61 H (4-34) U/L Alkaline Phosphatase 100 (38-126) U/L Total Protein 7.1 (6.3-8.2) g/dL Albumin 4.4 (3.5-5.0) g/dL Amylase 52 (30-110) U/L Lipase 79 (23-300) U/L Urine Color Urine Appearance (Clear) Urine pH (5.0-8.0) Ur Specific Climax (1.001-1.035) Urine Protein (Negative) Urine Glucose (UA) (Negative) Urine Ketones (Negative) Urine Blood (Negative) Urine Nitrite (Negative) Urine Bilirubin (Negative) Urine Urobilinogen (<2.0) mg/dL Ur Leukocyte Esterase (Negative) Urine RBC (0-5) /hpf Urine WBC (0-5) /hpf Ur Squamous Epith Cells (0-4) /hpf Urine Mucus (None) /hpf Influenza Type A (PCR) (Not Detectd) Influenza Type B (PCR) (Not Detectd) RSV (PCR) (Not Detectd) SARS-CoV-2 (PCR) (Not Detectd) Group A Strep (PCR) (Not Detectd) 03/11/24 03/11/24 03/11/24 Range/Units 16:48 16:48 16:54 WBC (3.8-10.6) k/uL RBC (3.80-5.40) m/uL Hgb (11.4-16.0) gm/dL Hct (34.0-46.0) % MCV (80.0-100.0) fL MCH (25.0-35.0) pg MCHC (31.0-37.0) g/dL RDW (11.5-15.5) % Plt Count (150-450) k/uL MPV Neutrophils % % Lymphocytes % % Monocytes % % Eosinophils % % Basophils % % Neutrophils # (1.3-7.7) k/uL Lymphocytes # (1.0-4.8) k/uL Monocytes # (0-1.0) k/uL Eosinophils # (0-0.7) k/uL Basophils # (0-0.2) k/uL PT (10.0-12.5) sec INR (<1.2) APTT (22.0-30.0) sec Sodium (137-145) mmol/L Potassium (3.5-5.1) mmol/L Chloride (98-107) mmol/L Carbon Dioxide (22-30) mmol/L Anion Gap mmol/L BUN (7-17) mg/dL Creatinine (0.52-1.04) mg/dL Est GFR (CKD-EPI)AfAm (>60 ml/min/1.73 sqM) Est GFR (CKD-EPI)NonAf (>60 ml/min/1.73 sqM) Glucose (74-99) mg/dL Plasma Lactic Acid Sky 1.1 (0.7-2.0) mmol/L Calcium (8.4-10.2) mg/dL Total Bilirubin (0.2-1.3) mg/dL AST (14-36) U/L ALT (4-34) U/L Alkaline Phosphatase (38-126) U/L Total Protein (6.3-8.2) g/dL Albumin (3.5-5.0) g/dL Amylase (30-110) U/L Lipase (23-300) U/L Urine Color Yellow Urine Appearance Cloudy H (Clear) Urine pH 6.0 (5.0-8.0) Ur Specific Climax 1.030 (1.001-1.035) Urine Protein 1+ H (Negative) Urine Glucose (UA) Negative (Negative) Urine Ketones 2+ H (Negative) Urine Blood Negative (Negative) Urine Nitrite Negative (Negative) Urine Bilirubin Negative (Negative) Urine Urobilinogen 2.0 (<2.0) mg/dL Ur Leukocyte Esterase Large H (Negative) Urine RBC 4 (0-5) /hpf Urine WBC 34 H (0-5) /hpf Ur Squamous Epith Cells 16 H (0-4) /hpf Urine Mucus Many H (None) /hpf Influenza Type A (PCR) Not Detected (Not Detectd) Influenza Type B (PCR) Not Detected (Not Detectd) RSV (PCR) Not Detected (Not Detectd) SARS-CoV-2 (PCR) Not Detected (Not Detectd) Group A Strep (PCR) (Not Detectd) 03/11/24 Range/Units 16:54 WBC (3.8-10.6) k/uL RBC (3.80-5.40) m/uL Hgb (11.4-16.0) gm/dL Hct (34.0-46.0) % MCV (80.0-100.0) fL MCH (25.0-35.0) pg MCHC (31.0-37.0) g/dL RDW (11.5-15.5) % Plt Count (150-450) k/uL MPV Neutrophils % % Lymphocytes % % Monocytes % % Eosinophils % % Basophils % % Neutrophils # (1.3-7.7) k/uL Lymphocytes # (1.0-4.8) k/uL Monocytes # (0-1.0) k/uL Eosinophils # (0-0.7) k/uL Basophils # (0-0.2) k/uL PT (10.0-12.5) sec INR (<1.2) APTT (22.0-30.0) sec Sodium (137-145) mmol/L Potassium (3.5-5.1) mmol/L Chloride (98-107) mmol/L Carbon Dioxide (22-30) mmol/L Anion Gap mmol/L BUN (7-17) mg/dL Creatinine (0.52-1.04) mg/dL Est GFR (CKD-EPI)AfAm (>60 ml/min/1.73 sqM) Est GFR (CKD-EPI)NonAf (>60 ml/min/1.73 sqM) Glucose (74-99) mg/dL Plasma Lactic Acid Sky (0.7-2.0) mmol/L Calcium (8.4-10.2) mg/dL Total Bilirubin (0.2-1.3) mg/dL AST (14-36) U/L ALT (4-34) U/L Alkaline Phosphatase (38-126) U/L Total Protein (6.3-8.2) g/dL Albumin (3.5-5.0) g/dL Amylase (30-110) U/L Lipase (23-300) U/L Urine Color Urine Appearance (Clear) Urine pH (5.0-8.0) Ur Specific Climax (1.001-1.035) Urine Protein (Negative) Urine Glucose (UA) (Negative) Urine Ketones (Negative) Urine Blood (Negative) Urine Nitrite (Negative) Urine Bilirubin (Negative) Urine Urobilinogen (<2.0) mg/dL Ur Leukocyte Esterase (Negative) Urine RBC (0-5) /hpf Urine WBC (0-5) /hpf Ur Squamous Epith Cells (0-4) /hpf Urine Mucus (None) /hpf Influenza Type A (PCR) (Not Detectd) Influenza Type B (PCR) (Not Detectd) RSV (PCR) (Not Detectd) SARS-CoV-2 (PCR) (Not Detectd) Group A Strep (PCR) NOT DETECTED (Not Detectd) Disposition Clinical Impression: UTI (urinary tract infection), Otitis media, Impetigo Disposition: HOME SELF-CARE Condition: Good Instructions (If sedation given, give patient instructions): Urinary Tract Infection in Women (DC) Additional Instructions: It appears you have a UTI as well as impetigo. Possible mild ear infection as well. Switch antibiotic to Bactrim. Follow-up with PCP in the next 1 to 3 days. Return if any worsening symptoms. Prescriptions: Sulfamethox-Tmp 800-160Mg [Bactrim DS 800-160 mg] 1 tab PO Q12HR 7 Days #14 tab Is patient prescribed a controlled substance at d/c from ED?: No Referrals: Radha Her MD [Primary Care Provider] - 1-2 days Time of Disposition: 19:15
[2024-03-11 17:08] LABS: Basophils % (A) 0 %; Eosinophils # (A) 0.1 k/uL (0-0.7); Eosinophils % (A) 1 %; HCT 44.9 % (34.0-46.0); HGB 14.9 gm/dL (11.4-16.0); Lymphocytes # (A) 1.2 k/uL (1.0-4.8); Lymphocytes % (A) 14 %; MCH 30.1 pg (25.0-35.0); MCHC 33.2 g/dL (31.0-37.0); MCV 90.8 fL (80.0-100.0); Mean Platelet Volume 7.4; Monocytes # (A) 0.3 k/uL (0-1.0); Monocytes % (A) 3 %; Neutrophils # (A) 7.2 k/uL (1.3-7.7); Neutrophils % (A) 81 %; Platelet Count 307 k/uL (150-450); RBC 4.94 m/uL (3.80-5.40); RDW 13.5 % (11.5-15.5); WBC 8.9 k/uL (3.8-10.6)
[2024-03-11] MEDS: PANTOPRAZOLE 40 MG/10 ML VIAL IVP STA (17:10)
[2024-03-11] MEDS: ONDANSETRON 4 MG/2 ML VIAL IVP STA (17:10)
[2024-03-11] MEDS: KETOROLAC 15 MG/ML 1 ML VIAL IVP STA (17:10)
[2024-03-11 17:33] LABS: Partial Thromboplastin Time 22.5 sec (22.0-30.0); Prothrombin Time 11.1 sec (10.0-12.5)
[2024-03-11 17:36] LABS: Appearance,Urine Cloudy (Clear); Bilirubin,Urine Negative (Negative); Blood,Urine Negative (Negative); Color,Urine Yellow; Glucose,Urine (UA) Negative (Negative); Ketones,Urine 2+ (Negative); Leukocyte Esterase,Urine Large (Negative); Mucus,Urine Many /hpf; Nitrite,Urine Negative (Negative); Protein,Urine 1+ (Negative); RBC,Urine 4 /hpf (0-5); Squamous Epithelial Cell,Urine 16 /hpf (0-4); WBC,Urine 34 /hpf (0-5)
[2024-03-11 17:46] LABS: ALT 61 U/L (4-34); African American GFR (CKD) >90 (>60 ml/min/1.73 sqM); Albumin 4.4 g/dL (3.5-5.0); Amylase 52 U/L (30-110); Anion Gap 7 mmol/L; Blood Urea Nitrogen 15 mg/dL (7-17); Calcium 9.8 mg/dL (8.4-10.2); Carbon Dioxide 27 mmol/L (22-30); Chloride 103 mmol/L (98-107); Glucose 96 mg/dL (74-99); Lipase 79 U/L (23-300); Non-African American GFR(CKD) >90 (>60 ml/min/1.73 sqM); Sodium 137 mmol/L (137-145); Total Bilirubin 0.8 mg/dL (0.2-1.3); Total Protein 7.1 g/dL (6.3-8.2)
[2024-03-11 17:51] LABS: AST 49 U/L (14-36); Alkaline Phosphatase 100 U/L (38-126); Potassium 4.7 mmol/L (3.5-5.1)
--- NOTE | 2024-03-11 18:43 | CT ---
EXAMINATION TYPE: CT abdomen pelvis w con DATE OF EXAM: 03/11/2024 6:19 PM COMPARISON: 03/01/2024 CLINICAL INDICATION: Female, 38 years old with history of abdominal pain, ostomy, constipation. hx re ctal CA; Abdominal pain, ostomy, constipation. hx rectal CA. TECHNIQUE: Axial CT abdomen pelvis w con;Sagittal and coronal reformats were created on a separate w orkstation. Contrast used:100 ml mL of Isovue 300 with IV Contrast, (none if empty) Oral contrast used: without Oral Contrast (none if empty) CT DLP: 1640.4 mGycm, Automated exposure control for dose reduction was used. FINDINGS: LOWER CHEST: Unremarkable ABDOMEN LIVER: Enhancing lesions seen on prior CT 03/01/2024 not well appreciated probably due to phase of co ntrast. GALLBLADDER AND BILE DUCTS: Unremarkable. PANCREAS: Unremarkable. SPLEEN: Unremarkable. ADRENAL GLANDS: Unremarkable. KIDNEYS AND URETERS: No evidence of hydronephrosis or renal calculus. The ureters are unremarkable. PELVIS BLADDER: No evidence for wall thickening or mass given limitations of exam. REPRODUCTIVE: Unremarkable. ABDOMEN & PELVIS STOMACH AND BOWEL: No evidence of bowel obstruction. Left lower quadrant colostomy present. No bowel wall thickening or evidence of obstruction. Few scattered colonic diverticula present. The appendix i s normal. PERITONEUM/RETROPERITONEUM: No evidence of pneumoperitoneum or free fluid. VASCULATURE: No evidence of aortic aneurysm. MUSCULOSKELETAL: No acute osseous abnormalities LYMPH NODES: No gross evidence for lymphadenopathy. SOFT TISSUE/ABDOMINAL WALL: Left lower quadrant colostomy No evidence for obstruction or wall thicken ing. IMPRESSION: Left lower quadrant colostomy present, No evidence for obstruction or wall thickening. No acute abdom inal process. [facility], , 03/11/2024 6:40 PM
--- NOTE | 2024-03-11 18:45 | XR ---
EXAMINATION TYPE: XR chest 2V DATE OF EXAM: 03/11/2024 6:41 PM COMPARISON: None CLINICAL INDICATION: Female, 38 years old with history of abdominal pain; TECHNIQUE: XR chest 2V Frontal and lateral views of the chest. FINDINGS: Lungs/Pleura: There is no evidence of pleural effusion, focal consolidation, or pneumothorax. Pulmonary vascularity: Unremarkable. Heart/mediastinum: Cardiomediastinal silhouette is unremarkable. Musculoskeletal: No acute osseous pathology. IMPRESSION: No acute cardiopulmonary disease/process. [facility], , 03/11/2024 6:43 PM
[2024-03-11 18:53] VITALS: TEMP 98
[2024-03-11] MEDS: ONDANSETRON 4 MG ODT STARTER PACK 2 TAB BTL PO STA (20:01)
[2024-03-11] MEDS: DEXAMETHASONE SOD PHOSPHATE 4 MG/ML 1 ML VIAL IVP STA (20:01)
[2024-03-11] MEDS: SULFAMETHOX-TMP 800-160MG 1 EACH TAB PO STA (20:01)
[2024-03-11 20:10] VITALS: BP 118/77; PULSE 77; RESP 16
== END 2024-03-11 20:09 | disposition home or self-care (01) ==
LOC: EC 15:29
DX: H66.92 Otitis media, unspecified, left ear (principal); L01.00 Impetigo, unspecified; N39.0 Urinary tract infection, site not specified; Z88.0 Allergy status to penicillin; Z93.3 Colostomy status; Z11.52 Encounter for screening for COVID-19
CPT/HCPCS: 36415; 87651; 80053; 82150; 83605; 83690; 85025; 85610; 85730; 81001; 87086; 87636; 71046; 74177; 99284; 96374; 96375; 96361; J1100; J2405; J1885; S0119; Q9967; J2470

== ENCOUNTER → 2024-08-02 | Outpatient (CLI) | payer MEDICARE, OTHER ==
--- NOTE | 2024-08-02 12:51 | CT ---
EXAMINATION TYPE: CT ChestAbdPelvis w con DATE OF EXAM: 08/02/2024 12:23 PM COMPARISON: 03/01/2024, 09/01/2023 CLINICAL INDICATION: Female, 38 years old with history of C20 MALIGNANT NEOPLASM OF RECTUM; PHH, f/u rectal ca Technique: CT ChestAbdPelvis after IV contrast. Delayed images through the kidneys and coronal/sagitt al reconstructions performed. Contrast used:100 mL of Isovue 300 with IV Contrast, (None if empty) Oral contrast used: with Oral Contrast CT DLP: 1809.6 mGycm, Automated exposure control for dose reduction was used. Findings: CHEST: Heart is borderline enlarged without pericardial effusion. No significant coronary calcifications are seen. Aorta normal caliber with conventional arch vessel branching anatomy. No thoracic lymph adenopathy by CT size criteria. Low lung volumes with large body habitus. Groundglass change scattered throughout the lungs suspected generalized atelectasis in the setting of low lung volumes. No chris consolidation or pleural effusi on. ABDOMEN: Small hiatal hernia. Approximate 4 hepatic lesions: Hypodense lesion left hepatic dome currently 1.6 cm versus 1.4 cm, previously. Medial posterior right liver lobe 1.6 cm versus 1.3 cm, previously. Hypervascular 1 cm enhancing focus posterior medial right lower lobe 1.0 cm versus 1.2 cm, previously . Suspect flash filling hemangioma. Hypodense lesion 8 mm periphery of the right liver lobe not seen on 03/01/2024 but seen on some older prior suggests 09/01/2023 were measured 1.1 cm. Portal venous system is patent. No biliary ductal dilatation. Gallbladder, adrenal glands, kidneys, spleen, and pancreas within normal limits. No dilated small bowel, free fluid, or free air. Scattered prominent but nonenlarged left abdominal m esenteric lymph nodes measuring up to 7 mm unchanged. Cecum taking low within the pelvis. Appendix not well seen. Left paramedian infraumbilical sigmoid colostomy. Scattered moderate stool. No pericolonic inflammato ry change. Patient status post distal colon resection. Pelvis: Bladder urine distended. Uterus is retroverted. Ovaries not well delineated. No abnormal fluid collec tion in the pelvis or pelvic lymphadenopathy. Bones: Left L5 pars defects. Grade 1 anterolisthesis L5-S1 with moderate degenerative disc disease. No osseo us destructive process. IMPRESSION: 1. Left lower quadrant sigmoid colostomy and distal colon resection. 2. Four hepatic lesions identified. Hypervascular lesion in the right liver lobe favored to represent a benign flash filling hemangioma. The other 3 are indeterminate. 2 measure slightly larger, for exa mple, 1.6 cm versus 1.4 cm, previously. A third in the periphery of the right liver lobe may be recur rent as it was not seen on 03/01/2024 and is 8 mm now versus 1.1 cm on 09/01/2023. Ongoing close surve illance follow-up recommended to exclude subtle disease progression. 3. Hypoventilatory changes likely accounting for the scattered groundglass in the lungs, likely due t o generalized atelectasis. 4. Small hiatal hernia. [facility], , 08/02/2024 12:49 PM
== END | disposition home or self-care (01) ==
LOC: RADPROMAIN 10:19
PROVIDERS: ATTEND Internal Medicine Hematology & Oncology
DX: C20 Malignant neoplasm of rectum (principal); G62.0 Drug-induced polyneuropathy; F99 Mental disorder, not otherwise specified; K76.89 Other specified diseases of liver; K44.9 Diaphragmatic hernia without obstruction or gangrene; Z71.3 Dietary counseling and surveillance; Z93.3 Colostomy status
CPT/HCPCS: 71260; 74177; Q9967